=== PATIENT | female | born 1970 | race Caucasian/White ===

== ENCOUNTER 2017-06-23 21:20 | Emergency (ER) | payer MEDICAID ==
[~2017-06-23] VITALS: Ht 147.3 cm; Wt 59.0 kg
[2017-06-23 21:22] VITALS: BP 147/96
== END 2017-06-23 23:00 | disposition left against medical advice (07) ==
LOC: ER 21:41
DX: F41.9 Anxiety disorder, unspecified (principal); Z53.21 Procedure and treatment not carried out due to patient leaving prior to being seen by health care provider

== ENCOUNTER 2023-12-21 18:51 | Emergency (ER) | payer SELFPAY ==
[~2023-12-21] VITALS: Ht 149.9 cm; Wt 69.0 kg
[2023-12-21 18:55] VITALS: O2SAT 99
[2023-12-21] MEDS: IBUPROFEN 600MG TABLET PO ONE (22:05)
[2023-12-21] MEDS: ACETAMINOPHEN 325MG TABLET PO ONE (22:05)
[2023-12-21] MEDS ORDERED: NAPR500T7 MT (22:31)
[2023-12-21] MEDS ORDERED: TOPUD PO (22:31)
[2023-12-21] MEDS ORDERED: LIDO700A30 TP (22:31)
[2023-12-21 22:57] VITALS: BP 150/87; PULSE 75; RESP 16; TEMP 98
== END 2023-12-21 23:02 | disposition home or self-care (01) ==
LOC: ER 19:41
DX: R07.9 Chest pain, unspecified (principal); E11.9 Type 2 diabetes mellitus without complications; V98.8XXA Other specified transport accidents, initial encounter; Y93.89 Activity, other specified; Y92.89 Other specified places as the place of occurrence of the external cause; Y99.8 Other external cause status
CPT/HCPCS: 71045; 99283